=== PATIENT | female | born 1985 | race American Indian/Alaskan Native ===

== ENCOUNTER 2017-05-11 08:24 | Emergency (ER) | payer SELFPAY ==
[2017-05-11 08:58] LABS: Basophils % (Auto) 1.4 % (0.0-1.8); Eosinophils % (Auto) 3.6 % (0.0-4.3); Hematocrit 42.7 % (30.3-42.9); Hemoglobin 14.1 gm/dl (10.1-14.3); Mean Corpuscular HGB Conc 33 % (30-34); Mean Corpuscular Hemoglobin 27 pg (28-32); Mean Corpuscular Volume 80 fl (79-97); Platelet Count 356 K/mm3 (140-440); Red Blood Count 5.33 M/mm3 (3.65-5.03); Red Cell Distribution Width 15.2 % (13.2-15.2); White Blood Count 5.3 K/mm3 (4.5-11.0)
[2017-05-11 09:32] LABS: Bacteria,Urine 4+ /HPF (Negative); Bilirubin,Urine NEG (Negative); Blood,Urine LG (Negative); Ketones,Urine TR mg/dL (Negative); Leukocyte Esterase,Urine SM (Negative); Nitrite,Urine NEG (Negative); Urobilinogen,Urine < 2.0 mg/dL (<2.0)
[2017-05-11 09:45] LABS: RBC,Urine > 182.0 /HPF (0.0-6.0)
[2017-05-11 10:15] LABS: Alanine Aminotransferase 252 units/L (7-56); Albumin 4.6 g/dL (3.9-5); Albumin/Globulin Ratio 1.3 %; Alkaline Phosphatase 151 units/L (35-129); Anion Gap 24 mmol/L; Blood Urea Nitrogen 6 mg/dL (7-17); Calcium 9.9 mg/dL (8.4-10.2); Carbon Dioxide 23 mmol/L (22-30); Chloride 99.4 mmol/L (98-107); Glucose 123 mg/dL (65-100); Sodium 142 mmol/L (137-145); Total Protein 8.1 g/dL (6.3-8.2)
[2017-05-11 10:29] LABS: Lipase 430 units/L (13-60)
[2017-05-11] MEDS ORDERED: NACL 0.9% 1000 ML 1,000 ML IV ONE (15:16)
--- NOTE | 2017-05-11 15:47 | Emergency Department Report ---
HPI - General Chief Complaint: Abdominal Pain Time Seen by Provider: 05/11/17 15:12 - HPI HPI: She is a 32-year-old female presents to ED complaining of right sided flank pain that began 3 days ago. Patient states pain radiates to her back region. Patient states she's been experiencing nausea and vomiting intermittently since Sunday afternoon. She is mentions about 2 weeks ago which was her birthday she had indulged a high normal is amount of alcohol beverage. Patient states she intermittently drinks and smokes. Patient states that she is on her menstrual cycle which started 2 days ago. Patient states fever/chills Patient denies pain with urination, burning with urination, vaginal discharge, abdominal pain, chest pain, shortness of breath. ED Past Medical Hx - Past Medical History Hx Hypertension: Yes Hx Diabetes: No - Surgical History Past Surgical History?: No - Social History Smoking Status: Current Every Day Smoker Substance Use Type: Alcohol, Marijuana - Medications Home Medications: Home Medications Medication Instructions Recorded Confirmed Last Taken Type Erythromycin [Erythromycin Ophth 10 applic OP TID #1 tube 03/20/15 Unknown Rx Oint] Naphazoline HCl/Pheniramine 15 ml OP DAILY #1 bottle 03/20/15 Unknown Rx [Visine-A Eye Drops] Acetaminophen/Codeine [Tylenol 1 tab PO Q6H PRN #20 tab 05/11/17 Unknown Rx /Codeine # 3 tab] Ibuprofen [Motrin] 800 mg PO Q8HR PRN #40 tablet 05/11/17 Unknown Rx Promethazine [Phenergan TAB] 25 mg PO Q8HR PRN #40 tab 05/11/17 Unknown Rx ED Review of Systems ROS: Stated complaint: ABD /BACK PAIN Other details as noted in HPI Constitutional: denies: chills, fever Eyes: denies: eye pain, eye discharge, vision change ENT: denies: ear pain, throat pain Respiratory: denies: cough, shortness of breath, wheezing Cardiovascular: denies: chest pain, palpitations Endocrine: no symptoms reported Gastrointestinal: denies: abdominal pain, nausea, diarrhea Genitourinary: denies: urgency, dysuria, frequency, hematuria, discharge Musculoskeletal: denies: back pain, joint swelling, arthralgia Skin: denies: rash, lesions Neurological: denies: headache, weakness, numbness, paresthesias Psychiatric: denies: anxiety, depression Hematological/Lymphatic: denies: easy bleeding, easy bruising Physical Exam - Physical Exam Vital Signs: Vital Signs 05/11/17 08:29 Temperature 97.4 F L Pulse Rate 56 L Respiratory 20 Rate Blood Pressure 172/92 O2 Sat by Pulse 99 Oximetry Physical Exam: GENERAL: Alert and oriented x3, no apparent distress, laying in bed atraumatic. No active vomiting HEAD: Head is normocephalic and a-traumatic. EYES: Extra ocular muscles are intact. Pupils are equal, round, and reactive to light and accommodation. MOUTH:Mouth is well hydrated and without lesions. Tonsils nonerythematous or swollen, Uvula midline, Tongue not elevated. Mucous membranes are moist. Posterior pharynx clear, no exudate or lesions. Patent airways. LUNGS: Symetrical with respiration, No wheezing, no rales or crackles, CTAB. HEART: S1, S2 present, regular rate and rhythm without murmur, no rubs, no gallops. ABDOMEN: No organomegaly was noted,Positive bowel sounds, soft, and non- distended. No ecchymosis, no bruising . Nontender to palpation on all Quadrants, left sided CVA tenderness. SKIN: Warm and dry, No lesions, No ulceration or induration present. ED Course Vital Signs 05/11/17 08:29 Temperature 97.4 F L Pulse Rate 56 L Respiratory 20 Rate Blood Pressure 172/92 O2 Sat by Pulse 99 Oximetry ED Medical Decision Making - Lab Data Result diagrams: 05/11/17 08:42 05/11/17 08:42 - Medical Decision Making 32-year-old female presents with urinary tract infection/acute pilonidal ED course: CBC, CMP, urinalysis, urine test ordered. CBC normal, CMP shows elevated lipase, liver enzymes and glucose. Urinalysis show elevated WBCs, 4+ bacteria, hematuria 1 L of normal saline, Rocephin 500 mg, and Zofran administered. Abdominal ultrasound ordered. Abdominal ultrasound shows hepatomegaly with nonalcoholic fatty liver. Cholelithiasis not acute. No obstruction. Discussed all findings with patient. Home medication of nausea and pain given. Discussed need for GI and general surgery referrals given. Discussed the patient to take medications as prescribed and follow-up in 3 to 5 days. Discussed case with my attending Dr. Mirza who agrees with plan. Vital signs are normal patient is in no acute distress. Constipation [employer] in symptoms or new symptoms to return to ED. Patient is alert and oriented 3 and verbalize understanding all instructions given Critical care attestation.: If time is entered above; I have spent that time in minutes in the direct care of this critically ill patient, excluding procedure time. ED Disposition Clinical Impression: Hepatomegaly UTI (urinary tract infection) Qualifiers: Urinary tract infection type: acute cystitis Hematuria presence: with hematuria Qualified Code(s): N30.01 - Acute cystitis with hematuria Cholelithiasis without obstruction Qualifiers: Cholelithiasis location: gallbladder Cholecystitis presence: without cholecystitis Qualified Code(s): K80.20 - Calculus of gallbladder without cholecystitis without obstruction Disposition: TO HOME OR SELFCARE Is pt being admited?: No Does the pt Need Aspirin: No Condition: Stable Instructions: Biliary Colic (ED), Urinary Tract Infection in Women (ED), Acute Nausea and Vomiting (ED), Non-Alcoholic Fatty Liver Disease (ED), Abdominal Pain (ED) Prescriptions: Acetaminophen/Codeine [Tylenol /Codeine # 3 tab] 1 tab PO Q6H PRN #20 tab PRN Reason: Pain Ibuprofen [Motrin] 800 mg PO Q8HR PRN #40 tablet PRN Reason: Pain Promethazine [Phenergan TAB] 25 mg PO Q8HR PRN #40 tab PRN Reason: Nausea Referrals: PRIMARY CARE, [Primary Care Provider] - 3-[address] MORALES MD [Staff Physician] - 3-5 Days LEANN ZAMORA MD [Staff Physician] - 3-5 Days FRANCY CASTELLANOS NP [Advanced Practice Nurse] - 3-5 Days Forms: Work/School Release Form(ED) Time of Disposition: 16:40
[2017-05-11] MEDS ORDERED: ZOFRAN IV ONE (15:52)
--- NOTE | 2017-05-11 16:04 | Ultrasound Report ---
ABDOMINAL ULTRASOUND: 05/11/17 08:24:00 CLINICAL: Elevated liver enzymes. Abdominal pain. FINDINGS: High-resolution ultrasound demonstrated enlarged liver with moderate diffuse increased echogenicity. The right lobe measures at least 18 cm in length.. No liver mass. Poor visualization of the hepatic vasculature. Normal inferior vena cava. Partial contraction of the gallbladder and a 2.4 cm calculus in the gallbladder. Gallbladder wall measures 1.7 mm. Normal bile ducts. The common bile duct measures 5.3 mm diameter. The pancreas is fairly well imaged and is normal size with diffuse decreased echogenicity. No pancreatic fluid, calcifications or mass. No ascites. Normal abdominal aorta. A normal spleen measures 9.2cm. Normal kidneys with normal echogenicity and normal non-dilated renal collecting systems and ureters. The right kidney measures 12.1 x 4.3 x 5.1cm. The left kidney measures 12.8 x 6.0 x 6.3cm. No renal mass or calculus. No mass. IMPRESSION: 1. Hepatic steatosis and hepatomegaly. 2. Cholelithiasis but no signs of acute cholecystitis. 3. No evidence of choledocholithiasis. 4. Decreased echogenicity of the pancreas suggests possible acute pancreatitis without pancreatic enlargement. However, there are no other signs to suggest pancreatitis.
[2017-05-11] MEDS ORDERED: ROCEPHIN 500 MG in NACL 0.9% 50 ML IV ONE (16:16)
[2017-05-11] MEDS ORDERED: TORADOL IV ONE (16:57)
[2017-05-11 17:24] VITALS: BP 150/75
== END 2017-05-11 17:23 | disposition home or self-care (01) ==
LOC: ED 08:24
DX: N30.01 Acute cystitis with hematuria (principal); K80.20 Calculus of gallbladder without cholecystitis without obstruction; R16.0 Hepatomegaly, not elsewhere classified; I10 Essential (primary) hypertension; F12.10 Cannabis abuse, uncomplicated; F17.200 Nicotine dependence, unspecified, uncomplicated
CPT/HCPCS: 36415; 76700; 80053; 81001; 81025; 83690; 85025; 96365; 96375; 99284; J0696; J1885; J2405; J7030